=== PATIENT | female | born 1990 | race Caucasian/White ===

== ENCOUNTER → 2016-08-07 | Outpatient (CLI) | payer BC ==
--- NOTE | 2016-08-07 13:42 | US ---
August 07, [address] Charles Mcintosh, Thank you for requesting consultation and a follow up ultrasound for your patient, Mrs. Oswaldo de la rosa. As you know, Darlene is a 26 year old G 1, P 0 . Her due date is 09/18/16 by LMP and 8 week ultrasound. Her current gestational age based on this dating is is 34 weeks 0 days. She is seen tod ay for a follow up assessment for growth secondary to concerns for macrosomia. She had reassur ing NIPT and MSAFP screening in this . ULTRASOUND Number of fetuses: 1 Placental location: Posterior presentation: Cephalic Heart Rate: 143 bpm Cervix: Suboptimal approximately 3.2 cm viewed transabdominally Maximum Vertical Pocket: 4.5 cm Measurements: Biparietal diameter: 94 mm 38 weeks, 2 days Head circumference: 320 mm 36 weeks, 1 days Abdominal circumference: 303 mm 34 weeks, 3 days Femur length: 63 mm 32 weeks, 5 days Humerus length: 56 mm 32 weeks, 6 days Transcerebellar diameter: 44 mm 34 weeks, 2 days Average age by ultrasound: 35 weeks, 3 days Estimated weight: 2417 gm weight percentile: 55 % ANATOMY anatomy was previously assessed. Today the following structures were visualized and appeared n ormal: Four-chamber view of the heart, stomach, bilateral kidneys, bladder, limited views of t he cerebellum, and views of the lip and nose area. IMPRESSION: 1. Intrauterine at 34 weeks, 0 days; ANA of 09/18/16. 2. growth is appropriate size for dates. 3. anatomy was previously assessed and today's ultrasound continues to provide reassurance of normal appearing anatomy. 4. Normal amniotic fluid volume RECOMMENDATIONS: I was pleased to review today's ultrasound with your patient. I reassured her that growth is normal at the 55 %ile for this gestational age. The amniotic fluid volume is normal. We performed a review of the anatomy which was limited by gestational age and position, but no overt abnormali ties were noted. Future ultrasound and consultation is available at your discretion. Thank you for allowing us the opportunity to evaluate your patient. Should you have any further ques tions or concerns please do not hesitate to contact me. Approximately 15 minutes were spent with the patient and 10 minutes were spent in face to face consu ltation. Susanna Loya MD [employer] [facility] Maternal Medicine Diagnosis Department of Obstetrics & Gynecology [facility]
--- NOTE | 2016-08-07 18:45 | US ---
Ultrasound Obstetric Follow Up Indication: Assess growth. macrosomia. The estimated gestational age by LMP is 34 weeks and 0 days yielding an EDC of 09/18/2016. Comparison: May 2016. Findings: Number: 1 Presentation: Vertex Placental Location: Posterior without previa Cervix: Suboptimal, 3.2 cm Amniotic MVP: 4.5 cm BIOMETRY: Biparietal Diameter: 93.89 mm 38 weeks, 2 days Head Circumference: 320.09 mm 36 weeks, 1 days Abdominal Circumference: 303.31 mm 34 weeks, 3 days Femur Length: 63.07 mm 32 weeks, 5 days Humerus Length: 56.32 mm 32 weeks, 6 days Transcerebellar Diameter: 44.16 mm 34 weeks, 2 days HC/AC: 1.06 (0.96-1.11) FL/BPD: 67% FL/AC: 21% Average Ultrasound Age: 35 weeks, 3 days EDC based on today's average ultrasound age: 309/08/2016 Estimated weight is 2417 gms +/- 353 gms. The estimated weight is at the 55 % based on pr evious dating. ANATOMY: Previous evaluated. FHR 143 bpm. Today's anatomy including four-chamber view the heart, stomach, bilateral kidneys, and b ladder demonstrate no abnormalities. Impression: 1. Living bagley in vertex presentation. 2. Size concordant with dates. 3. Normal amniotic fluid volume. 4. Please see Dr. Susanna Loya's consult and recommendations.
== END ==
LOC: FIMAGING 12:43
PROVIDERS: ATTEND Obstetrics & Gynecology
DX: Z34.03 Encounter for supervision of normal first pregnancy, third trimester (principal); Z3A.34 34 weeks gestation of pregnancy

== ENCOUNTER 2016-09-22 19:58 | Observation (INO) | payer BC | END 2016-09-22 21:41 | disposition home or self-care (01) | LOC: FLD 19:58 | PROVIDERS: ADMIT Obstetrics & Gynecology; ATTEND Obstetrics & Gynecology | DX: Z03.71 Encounter for suspected problem with amniotic cavity and membrane ruled out (principal); Z3A.40 40 weeks gestation of pregnancy | CPT/HCPCS: G0378 ×2 ==

== ENCOUNTER 2016-09-28 06:35 | Inpatient (IN) | payer BC ==
[2016-09-28] MEDS ORDERED: OXYTOCIN/RINGERS LACTATE 1,000 ML IV PRN (07:17)
[2016-09-28] MEDS ORDERED: TERBUTALINE SULFATE 1 MG/ML VIAL IV PRN (07:17)
[2016-09-28] MEDS ORDERED: LR 1,000 ML IV PRN (07:17)
[2016-09-28] MEDS ORDERED: LIDOCAINE 1% 30 ML SDV SC PRN (07:17)
[2016-09-28] MEDS ORDERED: AMPICILLIN SODIUM 2 GM in NS 100 ML IV ONE (07:17)
[2016-09-28] MEDS ORDERED: EPSOM SALT 454 GM TP PRN (07:17)
[2016-09-28] MEDS ORDERED: OLIVE OIL 118 ML BTL MISC PRN (07:17)
[2016-09-28 07:44] LABS: % IMMATURE GRANULYOCYTES 0.7 % (0.0-1.1); ABSOLUTE IMMATURE GRANULOCYTES 0.06 10^3/uL (0.00-0.10); ADD DIFF? NO; ADD MORPH? NO; ADD SCAN? NO; ATYPICAL LYMPHOCYTE FLAG 0 (0-99); FRAGMENT RBC FLAG 0 (0-99); HEMATOCRIT 42.1 % (38.0-47.0); HEMOGLOBIN 14.9 g/dL (12.6-16.3); LEFT SHIFT FLG 0 (0-99); LIPEMIA HEMOLYSIS FLAG 90 (0-99); MEAN CELL HEMOGLOBIN 34.4 pg (27.9-34.1); MEAN CELL HEMOGLOBIN CONCENTR. 35.4 g/dL (32.4-36.7); MEAN CELL VOLUME 97.2 fL (81.5-99.8); MEAN PLATELET VOLUME 9.4 fL (8.7-11.7); PLATELET CLUMPS FLAG 0 (0-99); PLATELET COUNT 216 10^3/uL (150-400); RED BLOOD CELL COUNT 4.33 10^6/uL (4.18-5.33); RED CELL DISTRIBUTION WIDTH 11.9 % (11.5-15.2)
[2016-09-28] MEDS ORDERED: LR 500 ML IV PRN (07:44)
[2016-09-28] MEDS ORDERED: OXYTOCIN/RINGERS LACTATE 500 ML IV SCH (08:00)
[2016-09-28] MEDS ORDERED: AMMONIA AROMATIC 1 EACH AMP IH ONE (11:01)
[2016-09-28] MEDS ORDERED: OLIVE OIL 118 ML BTL ONE (11:04)
[2016-09-28] MEDS ORDERED: MISOPROSTOL 200 MCG TAB ONE (11:05)
--- NOTE | 2016-09-28 11:45 | SOAPPROG ---
SOAP Progress Note Assessment/Plan: Assessment: 41w3d Active spontaneous labor GBS pos status reassuring Plan: 2nd dose amp expectant management 09/28/16 11:43 Subjective: Pt kicked into labor on her own after a few minutes of nipple stimulation. s/p nitrous, now getting fentanyl IV, considering epidural. Per Yasmine RN exam is 7- 8 cm with BBOW Objective: Laboratory Results 09/28/16 07:00 FHR 120-130, mod amy, + accel, rare amy decel [place]: q 3 min ICD10 Worksheet Patient Problems: Problems Problem Status Onset Normal labor Acute - ICD10 Problem Qualifiers (1) Normal labor
[2016-09-28] MEDS ORDERED: fentaNYL 100 MCG/2 ML INJ IVP ONE (12:00)
[2016-09-28] MEDS: AMPICILLIN SODIUM 1 GM in NS 100 ML IV SCH ×3 (12:09→20:26)
[2016-09-28] MEDS ORDERED: fentaNYL 100 MCG/2 ML INJ IVP PRN (12:30)
--- NOTE | 2016-09-28 16:03 | SOAPPROG ---
SOAP Progress Note Assessment/Plan: Assessment: 41w3d Active spontaneous labor GBS pos status reassuring Now wanting epidural Plan: On amp Get epidural then plan AROM 09/28/16 11:43 09/28/16 16:03 Subjective: Wants pain to go away. Getting tired and not coping as well Objective: Laboratory Results 09/28/16 07:00 Ant lip/BBOW chris Underwood RN FHR cat 1 ICD10 Worksheet Patient Problems: Problems Problem Status Onset Normal labor Acute - ICD10 Problem Qualifiers (1) Normal labor
[2016-09-28] MEDS ORDERED: fentaNYL 2MCG/ML/BUP 0.1% RTU 100 ML BAG EP ONE (16:05)
[2016-09-28] MEDS ORDERED: PHENYLEPHRINE HCL 100 MCG/ML SYR ONE (16:06)
[2016-09-28] MEDS ORDERED: BUPIVACAINE 0.25% 30 ML SDV ONE (16:06)
[2016-09-28] MEDS ORDERED: fentaNYL 100 MCG/2 ML INJ ONE (16:07)
[2016-09-28] MEDS ORDERED: ONDANSETRON 4 MG/2 ML VIAL IVP PRN (17:11)
[2016-09-28] MEDS ORDERED: PHENYLEPHRINE HCL 100 MCG/ML SYR IVP PRN (17:11)
--- NOTE | 2016-09-28 17:17 | PREANESOB ---
Obstetric Pre-Anesthesia Info - General Info Proposed Procedure: Labor and delivery. : 1 Para: 0 WBD: 41 - Info Status: Postmature Monitors: External FHR Baseline (bpm): 130 FHR Pattern: Reassuring - Labor Status Cervical Dilation per last OB SVE: 9 Indications for Labor Analgesia: Pain Control Labor Epidural: Proposed Anesthesia ROS: Negative. Allergies/Adverse Reactions: Allergy/AdvReac Type Severity Reaction Status Date / Time No Known Allergies Allergy Unverified 09/22/16 20:11 Visit Medications: Generic Name Dose Route Start Last Admin Trade Name Freq PRN Reason Stop Dose Admin Lactated Ringer's 1,000 mls @ 0 mls/hr 09/28/16 07:17 09/28/16 07:53 Lr IV 03/27/17 07:16 1,000 mls PRN PRN Administration SEE PROTOCOL CONDITIONS Protocol Per Protocol Oxytocin/Lactated Ringer's 1,000 mls @ 150 mls/hr 09/28/16 07:17 Pitocin 20 Units/Lr (Premix) IV PRN PRN Post- bleeding Lactated Ringer's 500 mls @ 500 mls/hr 09/28/16 07:44 Lr IV PRN PRN Maternal Hypotension Oxytocin/Lactated Ringer's 500 mls @ 0 mls/hr 09/28/16 08:00 Pitocin 30 Units/Lr (Premix) IV 03/27/17 07:59 CONT ROLDAN Protocol Per Protocol Ampicillin Sodium 1 gm/ Sodium 100 mls @ 200 mls/hr 09/28/16 08:30 09/28/16 16:23 Chloride IV 10/28/16 08:29 100 mls Q4H ROLDAN Administration Ibuprofen 600 mg 09/28/16 07:17 Motrin PO 03/27/17 07:16 Q6HRS PRN post , inflammation Lidocaine HCl 30 ml 09/28/16 07:17 Lidocaine Hcl 1% SC 03/27/17 07:16 ONCE PRN Episiotomy Magnesium Sulfate 454 gm 09/28/16 07:17 Epsom Salt TP 03/27/17 07:16 PRN PRN perineal discomfort [place] Oil 118 ml 09/28/16 07:17 Sweet Oil MISC 03/27/17 07:16 ONCE PRN preneal massage Terbutaline Sulfate 0.25 mg 09/28/16 07:17 Brethine IV 03/27/17 07:16 ONCE PRN Tachysystole Discontinued Medications Generic Name Dose Route Start Last Admin Trade Name Olga PRN Reason Stop Dose Admin Ammonia (Aromatic Spirit) Confirm 09/28/16 11:01 Ammonia Aromatic Administered 09/28/16 11:02 Dose 1 each IH .STK-MED ONE Bupivacaine HCl Confirm 09/28/16 16:06 Sensorcaine 0.25% Sdv Administered 09/28/16 16:07 Dose 30 ml .ROUTE .STK-MED ONE Ephedrine Sulfate Confirm 09/28/16 11:05 Ephedrine Sulfate Administered 09/28/16 11:06 Dose 50 mg .ROUTE .STK-MED ONE Fentanyl 50 - 75 mcg 09/28/16 12:00 09/28/16 12:04 Sublimaze IVP 09/28/16 12:01 75 mcg ONCE ONE Administration Fentanyl 50 - 75 mcg 09/28/16 12:30 09/28/16 13:00 Sublimaze IVP 09/28/16 13:30 75 mcg ONCE PRN Administration SEVERE PAIN Fentanyl Confirm 09/28/16 16:07 Sublimaze Administered 09/28/16 16:08 Dose 100 mcg .ROUTE .STK-MED ONE Fentanyl/Bupivacaine HCl Confirm 09/28/16 16:05 Fentanyl/Bupivacaine/Ns 2 Mcg/Ml 0.1% (Premix Administered 09/28/16 16:06 Dose 100 ml EP .STK-MED ONE Ampicillin Sodium 2 gm/ Sodium 110 mls @ 220 mls/hr 09/28/16 07:17 09/28/16 07:57 Chloride IV 09/28/16 07:46 110 mls ONCE ONE Administration Protocol Misoprostol Confirm 09/28/16 11:05 Cytotec Administered 09/28/16 11:06 Dose 800 mcg .ROUTE .STK-MED ONE [place] Oil Confirm 09/28/16 11:04 Sweet Oil Administered 09/28/16 11:05 Dose 118 ml .ROUTE .STK-MED ONE Phenylephrine HCl Confirm 09/28/16 16:06 Balbir-Synephrine Administered 09/28/16 16:07 Dose 1,000 mcg .ROUTE .STK-MED ONE - Anesthesia History Response to Local Anesthetics: Normal - Social History Substance Use/Abuse: Denies - Focused Exam Blood Pressure: 146/76 Heart Rate: 89 Height/Weight (Nursing): Height 165.1 cm Weight 77.111 kg Physical Exam: Within normal limits. ASA Status: II Labs: 09/28/16 07:00 Patient ABO/Rh A POSITIVE 09/28/16 07:00 - Plan Anesthetic Plan: CSE Consent Signed and on Chart: Yes Patient/Guardian Understands and Agrees to Plan: Yes
--- NOTE | 2016-09-28 17:20 | POSTANESTH ---
Post Anesthetic Evaluation Cardiovascular Status: Normal, Stable Respiratory Status: Normal, Stable, Similar to Pre-op Cond. Level of Consciousness/Mental Status: Can Participate in Eval, Alert and Oriented Pain Control: Adequate, Prn Tx Ordered Nausea/Vomiting Control: Adequate, Prn Tx Ordered Complications Possibly Related to Anesthesia: None Noted (Tolerated CSE well, stable, comfortable.)
[2016-09-28] MEDS ORDERED: LR 500 ML IV SCH (17:30)
[2016-09-28] MEDS ORDERED: fentaNYL 2MCG/ML/BUP 0.1% RTU 100 ML EP SCH (17:30)
--- NOTE | 2016-09-28 19:16 | SOAPPROG ---
SOAP Progress Note Assessment/Plan: Assessment: 41w3d Active spontaneous labor GBS pos status reassuring Plan: Pushing Reviewed with pt and in detail that baby is thought to be on bigger side (EFW by seamus's 8.5-9#), though pelvis feels adequate. However baby has not descended significantly despite the fact she has been complete since 1500 and had AROM at 1815 and then labor down x 45 minutes. Reviewed risks of C/S, shoulder dystocia, PPH. They understand, she wants to push now and continue pushing x 1-2 hours if baby's status is reassuring. Aware if she has no descent we will recommend C/S for arrest of descent at that time. providers aware of meconium 09/28/16 19:16 Subjective: epidural is working well, but now feeling contractions again and has urge to push Objective: Vital Signs Temp Pulse Resp BP Pulse Ox 89 146/76 H 09/28/16 17:19 09/28/16 17:19 Laboratory Results 09/28/16 07:00 10/100/+1/OA (1900) AROM at 18:15, thick meconium. Pt was at zero station at that time. FHR baseline 140, moderate amy, + accel, rare variable. Had prolonged decel after epidural placement, resolved with position change and epinephrine ICD10 Worksheet Patient Problems: Problems Problem Status Onset Normal labor Acute - ICD10 Problem Qualifiers (1) Normal labor
[2016-09-28] MEDS ORDERED: HEMABATE 250 MCG/1 ML AMP IM ONE (20:21)
[2016-09-28] MEDS ORDERED: METHYLERGONOVINE MAL 0.2 MG/ML INJ ONE (20:21)
--- NOTE | 2016-09-28 20:48 | SOAPPROG ---
SOAP Progress Note Assessment/Plan: Assessment: 41w3d Active spontaneous labor GBS pos status reassuring Pushing-making good progress Plan: Continue pushing 09/28/16 19:16 09/28/16 20:47 Subjective: still has good energy Objective: Vital Signs Temp Pulse Resp BP Pulse Ox 89 146/76 H 09/28/16 17:19 09/28/16 17:19 Laboratory Results 09/28/16 07:00 Evaluated pushing at 2000: Pt progressed from 1+ to 2+, and is pushing baby to 3 +. Excellent effort. status reassuring, has variables with pushing with otherwise with mod amy and accels ICD10 Worksheet Patient Problems: Problems Problem Status Onset Normal labor Acute - ICD10 Problem Qualifiers (1) Normal labor
--- NOTE | 2016-09-28 22:09 | SOAPPROG ---
SOAP Progress Note Assessment/Plan: Assessment: 41w3d Active spontaneous labor GBS pos status reassuring Pushing-slow progress but ongoing Plan: Continue pushing. Now at 3 hr elizabeth. Continue to monitor closely 09/28/16 19:16 09/28/16 20:47 09/28/16 22:09 Subjective: pushing Objective: Vital Signs Temp Pulse Resp BP Pulse Ox 89 146/76 H 09/28/16 17:19 09/28/16 17:19 Laboratory Results 09/28/16 07:00 Now at 3+ station, pushes to 4+. Slow but is making progress FHR baseline 140s-150s, mod amy, + accels, intermittent variable decels, rate late decel with pushing ICD10 Worksheet Patient Problems: Problems Problem Status Onset Normal labor Acute - ICD10 Problem Qualifiers (1) Normal labor
[2016-09-28 23:23] LABS: CORD BLOOD PCO2 46.5 mmHg (37-60); PH ARTERIAL CORD BLOOD 7.22 (7.10-7.37)
[2016-09-28 23:26] LABS: PH VENOUS CORD BLOOD 7.26 (7.20-7.42)
[2016-09-29] MEDS ORDERED: SIMETHICONE 80 MG TAB CHEW PO PRN (00:03)
[2016-09-29] MEDS ORDERED: HYDROCODONE/APAP 5/325 TAB PO PRN (00:03)
[2016-09-29] MEDS ORDERED: ACETAMINOPHEN 325 MG TAB PO PRN (00:03)
[2016-09-29] MEDS ORDERED: HYDROCORTISONE 0.5% CREAM TP PRN (00:03)
--- NOTE | 2016-09-29 00:09 | OBPROC ---
- Labor and Delivery Onset of Contractions Date: 09/28/16 Onset of Contractions Time: 08:00 Onset of Contractions Type: Spontaneous Rupture of Membranes Date: 09/28/16 Rupture of Membranes Type: Artificial Amniotic Fluid Color: Meconium Stained-Heavy Delivery Type: Spontaneous Placenta Delivery Date: 09/28/16 Episiotomy/Laceration: 2nd Degree Repair: 3-0 EBL: 300 Complications: None Cord Gases: Cord Gases Cord Blood PCO2 46.5 mmHg (37-60) 09/28/16 23:15 Cord Base Excess -9.0 mEq/L (-13.6--3.2) 09/28/16 23:15 Cord ABG pH 7.22 (7.10-7.37) 09/28/16 23:15 Cord VBG pH 7.26 (7.20-7.42) 09/28/16 23:15 - Medications Labor Augmentation/Induction Meds Used: Pitocin (2 mu/ml during pushing) Anesthesia: Epidural - Adams Info Infant A Delivery Date: 09/28/16 Delivery Time: 23:09 Sex of Infant: Male Score (1 Min): 6 Score (5 Min): 8 (Patient pushed x 4 hours with excellent effort and steady progress. status remained reassuring with moderate variability. TRI Church assisted during last 4 contractions by helping patient with pushing position from behind. Baby delivered spontaneously on KEVYN presentation with compound anterior hand. No shoulder dystocia. Baby was delivered onto maternal chest and as the tone was initially poor the cord was immediately cut and clamped and the baby was handed to the awaiting providers. IV pitocin started. Placenta delivered spontaneously. Uterus firm. 2nd degree laceration repaired in usual fashion. Rectal exam performed. Mom and baby in good condition , skin to skin after initial resusitation.)
[2016-09-29] MEDS: AMPICILLIN SODIUM 1 GM in NS 100 ML IV SCH (02:47)
[2016-09-29 04:38] VITALS: RESP 16
[2016-09-29] MEDS: IBUPROFEN 600 MG TAB PO PRN ×3 (04:56→19:39)
[2016-09-29] MEDS: DOCUSATE SODIUM 100 MG CAP PO PRN ×2 (11:31→19:39)
--- NOTE | 2016-09-29 18:31 | OBPROG ---
OBG Progress Note Assessment/Plan: Assessment: Pt is a 26 y/o PPD#1 s/p - doing well, no issues Plan: Continue routine PP care A+/RI Discharge home tomorrow 09/29/16 18:30 Subjective: No complaints, feeling well. Objective: 09/28/16 07:00 Patient ABO/Rh A POSITIVE 09/28/16 07:00 Temp Pulse Resp BP Pulse Ox 36.1 C 80 16 113/61 96 09/29/16 08:47 09/29/16 08:47 09/29/16 08:47 09/29/16 08:47 09/29/16 08:47 Uterine Position/Fundal Height: Umbilicus -2 Uterine Tone: Firm ICD10 Worksheet Patient Problems: Problems Problem Status Onset Normal labor Acute
[2016-09-30] MEDS: IBUPROFEN 600 MG TAB PO PRN ×4 (02:06→23:26)
--- NOTE | 2016-09-30 08:14 | OBPROG ---
OBG Progress Note Assessment/Plan: Assessment: Pt is a 26 y/o PPD#2 s/p - doing well, no issues Plan: Continue routine PP care A+/RI Continue inpatient care for support (delivered past 8pm) Discharge home tomorrow 09/30/16 08:13 Subjective: Pt feeling well, having to use nipple shield to breast feed. No complaints. Objective: 09/28/16 07:00 Patient ABO/Rh A POSITIVE 09/28/16 07:00 Temp Pulse Resp BP Pulse Ox 36.5 C 76 16 107/64 96 09/29/16 20:20 09/29/16 20:20 09/29/16 20:20 09/29/16 20:20 09/29/16 20:20 Uterine Position/Fundal Height: Umbilicus -1 Uterine Tone: Firm ICD10 Worksheet Patient Problems: Problems Problem Status Onset Normal labor Acute
[2016-09-30] MEDS ORDERED: EPSOM SALT 454 GM TP ONE (08:42)
[2016-09-30] MEDS: DOCUSATE SODIUM 100 MG CAP PO PRN ×2 (08:45→23:26)
[2016-09-30 21:36] VITALS: O2SAT 96
[2016-10-01 08:51] VITALS: BP 121/78; PULSE 77; TEMP 97.9
[2016-10-01] MEDS: IBUPROFEN 600 MG TAB PO PRN (08:55)
[2016-10-01] MEDS: DOCUSATE SODIUM 100 MG CAP PO PRN (08:55)
--- NOTE | 2016-10-01 12:18 | OBPROG ---
OBG Progress Note Assessment/Plan: Assessment: Pt is a 26 y/o PPD#3 s/p - doing well, no issues Plan: Discharge home A+/RI RX for motrin given. F/U in 6 weeks or sooner prn 10/01/16 12:17 Subjective: Pt doing well, no complaints. Ambulating, voiding, passing flatus, tolerating regular diet, lochia diminishing, and breast feeding progressing. Objective: 09/28/16 07:00 Patient ABO/Rh A POSITIVE 09/28/16 07:00 Temp Pulse Resp BP Pulse Ox 36.6 C 77 16 121/78 H 96 10/01/16 08:00 10/01/16 08:00 10/01/16 08:00 10/01/16 08:00 10/01/16 08:00 Uterine Position/Fundal Height: Umbilicus -2 Uterine Tone: Firm ICD10 Worksheet Patient Problems: Problems Problem Status Onset Normal labor Acute
== END 2016-10-01 15:30 | disposition home or self-care (01) | DRG 775 ==
LOC: FLD 06:35 → FOB 09-29 01:06
PROVIDERS: ADMIT Obstetrics & Gynecology; ATTEND Obstetrics & Gynecology
PROC: 10E0XZZ Delivery of Products of Conception, External Approach (ICD-10-PCS; principal; 2016-09-28)
PROC: 0KQM0ZZ Repair Perineum Muscle, Open Approach (ICD-10-PCS; principal; 2016-09-28)
DX: O48.0 Post-term pregnancy (principal); Z37.0 Single live birth; Z3A.41 41 weeks gestation of pregnancy; O99.824 Streptococcus B carrier state complicating childbirth; O70.1 Second degree perineal laceration during delivery
CPT/HCPCS: J0290; J2210; J2370; J2590; J3010; J3105